=== PATIENT | male | born 1980 | race Caucasian/White ===

== ENCOUNTER 2018-11-24 11:14 | Emergency (ER) | payer OTHER ==
[~2018-11-24] VITALS: Ht 180.3 cm; Wt 92.5 kg
[2018-11-24 11:30] VITALS: BP 122/80
--- NOTE | 2018-11-24 12:24 | RAD ---
ANKLE LEFT 3V History: Left ankle injury 1 week ago Comparison: None. Findings: 3 views of the left ankle are submitted. No acute fracture or dislocation is identified. Tibiotalar joint space is maintained. Impression: 1. No acute osseous abnormality is identified of the left ankle. Electronically signed by: Akin Nina MD (11/24/2018 12:21 PM) [id number]
--- NOTE | 2018-11-24 12:52 | PHYS DOC ---
Past History Past Medical History: High Cholesterol, Other Past Surgical History: No Surgical History Alcohol Use: Occasionally Drug Use: None Adult General Chief Complaint Chief Complaint: ANKLE PROBLEM HPI HPI Patient is a 38 year old male who presents with complaint of left ankle pain. Patient states that approximately one week ago he rolled his left foot inward after stepping between the edge of a lawn and the adjacent curb. States that he has been having pain along the lateral aspect of the left ankle since he heard a. Notes that he is still having tenderness. Did not seek medical evaluation upon initially injuring the ankle. States that he took ibuprofen the first 2 days but has not been taking any medications over the past week. Denies any other injuries. Has come to the emergency department for concern of possible fracture. States pain worsens with weightbearing and walking. Review of Systems Review of Systems Constitutional: Denies fever or chills [] Musculoskeletal: Left ankle pain[] Integument: Denies rash or skin lesions [] Neurologic: Denies headache, focal weakness or sensory changes [] All other systems were reviewed and found to be within normal limits, except as documented in this note. Allergies Allergies Allergies Coded Allergies Type Severity Reaction Last Updated Verified Penicillins Allergy Unknown 11/24/18 Yes Physical Exam Physical Exam Constitutional: Well developed, well nourished, no acute distress, non-toxic appearance. [] Skin: Warm, dry, no erythema, no rash. [] Extremities: Mild to moderate soft tissue swelling over lateral malleolus, tenderness palpation at tip of lateral malleolus, no tenderness over base of fifth metatarsal, left knee exam normal. [] Neurologic: Alert and oriented X 3, normal motor function, normal sensory function, no focal deficits noted. [] Current Patient Data Vital Signs Vital Signs Date Time Temp Pulse Resp B/P (MAP) Pulse Ox O2 Delivery O2 Flow Rate FiO2 11/24/18 11:30 97.7 76 16 96 Room Air Lab Results Not performed EKG EKG Not performed[] Radiology/Procedures Radiology/Procedures [address] [address] IMAGING REPORT Signed PATIENT: IOANA REVELES ACCOUNT: [id number] : 1980 LOCATION: ER AGE: 38 SEX: M EXAM STATUS: REG ER ORD. PHYSICIAN: CORNELL JOSÉ MD REASON: left ankle injury 1 week ago PROCEDURE: ANKLE LEFT 3V ANKLE LEFT 3V History: Left ankle injury 1 week ago Comparison: None. Findings: 3 views of the left ankle are submitted. No acute fracture or dislocation is identified. Tibiotalar joint space is maintained. Impression: 1. No acute osseous abnormality is identified of the left ankle. Electronically signed by: Tia Snowden MD (11/24/2018 12:21 PM) [id number] DICTATED AND SIGNED BY: TIA SNOWDEN MD DATE: 11/24/18 1221 CC: CORNELL JOSÉ MD; PCP,NO ~ [] Course & Med Decision Making Course & Med Decision Making Pertinent Labs and Imaging studies reviewed. (See chart for details) X-rays are negative for fracture. Advised the patient started on naproxen twice daily over the next 5 days for prolonged anti-inflammatory treatment. Advised to continue weightbearing as tolerated. Advised follow-up in one week with primary doctor if symptoms are not improving and return to emergency department for any worsening symptoms. Patient was understanding and in agreement with treatment plan. Dragon Disclaimer Dragon Disclaimer This electronic medical record was generated, in whole or in part, using a voice recognition dictation system. Departure Departure: Impression: Primary Impression: Left ankle sprain Disposition: 01 HOME, SELF-CARE Condition: STABLE Referrals: PCP,NO (PCP) Patient Instructions: Ankle Sprain Additional Instructions: You may take naproxen 440 mg by mouth twice daily for the next 5 days for treatment of inflammation and your left ankle. You may also take [id number] Tylenol as directed on packaging as needed for pain. Follow-up with your primary doctor in 1 week if symptoms are not improving and return to emergency department for any worsening symptoms. Problem Qualifiers Primary Impression: Left ankle sprain Encounter type: initial encounter Involved ligament of ankle: anterior talofibular ligament Qualified Codes: S93.492A - Sprain of other ligament of left ankle, initial encounter CORNELL JOSÉ MD Nov 24, 2018 12:52
== END 2018-11-24 13:03 | disposition home or self-care (01) ==
LOC: ER 11:14
DX: S93.402A Sprain of unspecified ligament of left ankle, initial encounter (principal); E78.00 Pure hypercholesterolemia, unspecified; Z88.0 Allergy status to penicillin; X50.9XXA Other and unspecified overexertion or strenuous movements or postures, initial encounter; Y93.89 Activity, other specified; Y92.89 Other specified places as the place of occurrence of the external cause; Y99.8 Other external cause status
CPT/HCPCS: 73610; 99284

== ENCOUNTER 2019-01-12 14:18 | Emergency (ER) | payer OTHER ==
[~2019-01-12] VITALS: Ht 180.3 cm; Wt 92.5 kg
[2019-01-12 14:27] VITALS: BP 123/85
[2019-01-12] MEDS ORDERED: KETOROLAC 60 MG/2 ML VIAL. IM ONE (14:45)
[2019-01-12] MEDS ORDERED: DEXAMETHASONE SOD PHOS 10 MG/ML VIAL IM ONE (14:45)
[2019-01-12] MEDS ORDERED: INDO75CA3 PO (14:56)
[2019-01-12] MEDS ORDERED: METH4TAB2 PO (14:56)
[2019-01-12] MEDS ORDERED: HYDR-2765 PO (14:56)
--- NOTE | 2019-01-12 14:57 | PHYS DOC ---
Past History Past Medical History: Other Past Surgical History: No Surgical History Alcohol Use: Occasionally Drug Use: None Adult General Chief Complaint Chief Complaint: BACK PAIN OR INJURY HPI HPI Patient is a 38-year-old male who presents with report of acute onset of pain in the right SI joint region that started yesterday. Patient states that he has had similar episodes in the past. He states that he thinks the initiating cause had been after hip injury that had occurred while on junp duty in the [employer]. He states that recently he had been working on a fence, this man swelling yet with repetitive motion about that joint. He states that yesterday he had taken some Robaxin and naproxen but has not had any improvement in pain.[] Review of Systems Review of Systems Constitutional: Denies fever or chills [] Respiratory: Denies cough or shortness of breath [] Cardiovascular: No additional information not addressed in HPI [] Musculoskeletal: Complains of right posterior hip/SI pain [] Neurologic: Denies headache, focal weakness or sensory changes [] Current Medications Current Medications Current Medications Medications (Trade) Dose Ordered Sig/Bertrand Start Time Stop Time Status Last Admin Dose Admin Dexamethasone Sodium Phosphate (Decadron) 10 mg 1X ONCE 01/12/19 14:45 01/12/19 14:46 DC 01/12/19 14:49 10 MG Ketorolac Tromethamine (Toradol Im) 60 mg 1X ONCE 01/12/19 14:45 01/12/19 14:46 DC 01/12/19 14:49 60 MG Allergies Allergies Allergies Coded Allergies Type Severity Reaction Last Updated Verified No Known Drug Allergies 01/12/19 No Physical Exam Physical Exam Constitutional: Well developed, well nourished, no acute distress, non-toxic appearance. [] Cardiovascular:Heart rate regular rhythm, no murmur [] Lungs & Thorax: Bilateral breath sounds clear to auscultation [] Back: There is tenderness to palpation around the right sacral sulcus. [] Current Patient Data Vital Signs Vital Signs Date Time Temp Pulse Resp B/P (MAP) Pulse Ox O2 Delivery O2 Flow Rate FiO2 01/12/19 14:27 98.0 59 18 97 Room Air EKG EKG [] Radiology/Procedures Radiology/Procedures [] Course & Med Decision Making Course & Med Decision Making Pertinent Labs and Imaging studies reviewed. (See chart for details) [] Dragon Disclaimer Dragon Disclaimer This electronic medical record was generated, in whole or in part, using a voice recognition dictation system. Departure Departure: Impression: Primary Impression: Sacroiliitis Disposition: 01 HOME, SELF-CARE Condition: STABLE Referrals: PEREZ HERNANDEZ (PCP) Patient Instructions: Back Pain, Adult, Sacroiliac Joint Dysfunction Scripts Methylprednisolone (MEDROL) 4 Mg Tab.ds.pk 1 PKG PO UD for inflammation, #1 PKG Prov: SOLANGE BLUE Jr. DO 01/12/19 Indomethacin (INDOMETHACIN) 75 Mg Capsule.er 1 CAP PO BID PRN for PAIN, #20 CAP Prov: SOLANGE BLUE Jr. DO 01/12/19 Hydrocodone Bit/Acetaminophen (HYDROCODONE-APAP 7.5-325 ) 1 Each Tablet 1 TAB PO PRN Q6HRS PRN for PAIN, #15 TAB 0 Refills Prov: SOLANGE BLUE Jr. DO 01/12/19 SOLANGE BLUE Jr. DO Jan 12, 2019 14:57
== END 2019-01-12 15:03 | disposition home or self-care (01) ==
LOC: ER 14:18
DX: M46.1 Sacroiliitis, not elsewhere classified (principal)
CPT/HCPCS: 96372; 99284; J1100; J1885